=== PATIENT | female | born 1940 | race Caucasian/White ===

== ENCOUNTER 2017-08-29 13:57 | Emergency (ER) | payer BC, OTHER ==
--- NOTE | 2017-08-29 15:14 | UC ---
Respiratory Complaint HPI - HPI Summary HPI Summary: 77 y/o female presents to the urgent care c/o productive cough,SOB for the past week. Pt reports symptoms started with nasal congestion and common cold. cough was improving, but yesterday she had chills and felt hot. she feels SOB when she coughs. she has been taking Robitussin PO , but she thinks it is elevating her BP. Pt denies chest pain, dizziness, ARANDA, ear pain, abdominal pain, N/V/D - History of Current Complaint Chief Complaint: UCGeneralIllness Stated Complaint: URI Time Seen by Provider: 08/29/17 14:30 Hx Obtained From: Patient Hx Last Menstrual Period: menopausal ?: No Onset/Duration: Gradual Onset, Lasting Weeks - 1 week, Still Present Timing: Intermittent Episodes Severity Initially: Mild Severity Currently: Moderate Pain Intensity: 7 Pain Scale Used: 0-10 Numeric Character: Cough: Productive, Sputum Description: - green Aggravating Factors: Deep Breaths, Recumbent Position Alleviating Factors: OTC Meds Associated Signs And Symptoms: Positive: Fever, Chills, URI - Risk Factors Pulmonary Embolism Risk Factors: Negative Cardiac Risk Factors: Hypertension, Elevated Lipids Pseudomonas Risk Factors: Negative Tuberculosis Risk Factors: Negative - Allergies/Home Medications Allergies/Adverse Reactions: Allergies Allergy/AdvReac Type Severity Reaction Status Date / Time No Known Allergies Allergy Verified 08/29/17 14:16 Home Medications: Home Medications Potassium Chloride Microencaps [Klor-Con M20] 20 meq PO DAILY 08/29/17 [History Confirmed 08/29/17] Valsartan/HCTZ 320/25(NF) [Diovan Hct 320/25(NF)] 1 tab PO DAILY 08/29/17 [ History Confirmed 08/29/17] amLODIPine TAB* [Norvasc 5 mg TAB*] 2.5 mg PO DAILY 08/29/17 [History Confirmed 08/29/17] PMH/Surg Hx/FS Hx/Imm Hx Previously Healthy: Yes Endocrine History: Dyslipidemia - diet control Cardiovascular History: Hypertension - Surgical History Surgical History: Yes Surgery Procedure, Year, and Place: D&C. gallbladder 2006 - Family History Known Family History: Positive: Cardiac Disease Family History: Colon cancer - Social History Occupation: Retired Lives: With Family Alcohol Use: None Substance Use Type: None Smoking Status (MU): Never Smoked Tobacco - Immunization History Vaccination Up to Date: Yes Review of Systems Constitutional: Fever - subjective, Chills Skin: Negative Eyes: Negative ENT: Nasal Discharge - yellowish nasal discharge Respiratory: Shortness Of Breath, Cough - productive with yellowish phlegm Cardiovascular: Negative Gastrointestinal: Negative Genitourinary: Negative Motor: Negative Neurovascular: Negative Musculoskeletal: Negative Neurological: Negative Psychological: Negative Is Patient Immunocompromised?: No All Other Systems Reviewed And Are Negative: Yes Physical Exam Triage Information Reviewed: Yes Vital Signs: Initial Vital Signs Temp 97.8 F 08/29/17 14:11 Pulse 68 08/29/17 14:11 Resp 18 08/29/17 14:11 BP 185/54 08/29/17 14:11 Pulse Ox 97 08/29/17 14:11 - Additional Comments Vital Signs Reviewed: Yes General: well developed, well nourished male sitting in the examining table w/o any apparent distress Eyes: Positive: Conjunctiva Clear - PERRLA, EOMI, fundi grossly normal ENT: Positive: Normal ENT inspection, Hearing grossly normal, Pharynx normal, Nasal congestion - edematous and erythematous nasal mucosa, Nasal drainage - yellowish drainage, TMs normal. Negative: Tonsillar swelling, Tonsillar exudate Neck: Positive: Supple, Nontender, No Lymphadenopathy Respiratory: no orthopnea or dyspnea. Able to speak in full sentences, no retractions or accessory muscle use, no tripod position, stridor, or head bobbing. scattered posterior upper lungs with rhonchi, no wheeaing or rales. Cardiovascular: Positive: RRR, No Murmur, Pulses Normal, Brisk Capillary Refill Abdomen Description: Positive: Nontender, No Organomegaly, Soft. Negative: CVA Tenderness (R), CVA Tenderness (L) Bowel Sounds: Positive: Present Musculoskeletal Exam: Normal Musculoskeletal: Positive: Strength Intact, ROM Intact, No Edema Neurological Exam: Normal Psychological Exam: Normal Skin Exam: Normal UC Diagnostic Evaluation - Laboratory O2 Sat by Pulse Oximetry: 97 Respiratory Course/Dx - Course Course Of Treatment: 77 y/o female presents to the urgent care c/o productive cough,SOB for the past week. Pt reports symptoms started with nasal congestion and common cold. cough was improving, but yesterday she had chills and felt hot. she feels SOB when she coughs. she has been taking Robitussin PO , but she thinks it is elevating her BP. Pt denies chest pain, dizziness, ARANDA, ear pain, abdominal pain, N/V/D. Hx obtained. Pt with scattered rhonchi on posterior upper lungs on examination.Chest X-ray ordered: Impression: no acute cardiopulmonary disease. However a positive 1.7 pulmonary nodule on the mid left lung. Dr Amador consulted on Pt's findings. He suggested to advised Pt to f/u with her PCP in 2-3 days for further managment. Pt with Acute bronchitis on examination. Pt Rx Z-ren PO and Albuterol inhaler and Tessalon tabs O to alleviate bronchospasm. Pt was educated on the pulmonary nodule. She states she hasn't done any images of her chest in the past 5 years and she has not lost any weight in the past 3 months. all questions answered at Pt 's satisfaction. Pt's BP is elevated today, advised to decrease salt in diet, monitor BP .Strongly advised to f/u as soon as possible with her PCP Dr Hill for referal for chest CT and further management on the pulmonary nodule.Pt also advised if not improvement or worsening of symptoms to go immediately to the ER for further management. pt understood and agreed with plan of care. Pt left the clinic hemodynamically stable. - Differential Dx/Diagnosis Differential Diagnosis/HQI/PQRI: Asthma, Bronchitis, Influenza, Laryngitis, Lower Resp Infection, Sinusitis, Other - URI, pharyngitis Provider Diagnoses: 1- Acute bronchitis. 2-Pulmonary nodule in the LF lung. 3 - Uncontrolled HTN - Physician Notification/Consults Discussed Patient Care With: Manolo Amador - Dr Amador agreed wotj Pt's plan of care Discharge - Discharge Plan Condition: Stable Disposition: HOME Prescriptions: Albuterol HFA INHALER* [Ventolin HFA Inhaler*] 1 - 2 puff INH Q6H PRN #1 mdi PRN Reason: Cough Azithromyxin RNE (NF) [Z-Ren (Zithromax) 250 mg tabs #6] 2 tab PO .TODAY, THEN 1 DAILY #6 tab Benzonatate CAP* [Tessalon 100 MG CAP*] 100 mg PO TID PRN #15 cap PRN Reason: Cough Patient Education Materials: Acute Bronchitis (ED), Pulmonary Nodules (ED) Referrals: Marilou Hill MD [Primary Care Provider] - 3 Days (Incidental finding of Mid-lecel left lung 1.7cm pulmonary nodule on chest X- ray. Please f/u with CT ans evaluate. Thank you) Additional Instructions: 1-Please take full course of antibiotic to avoid resistance. 2-Take Tessalon PO tabs as directed and use the albuterol inhaler to alleviate cough. Increase fluid intake, rest and eat well. 3- If symptoms do not improve or worsen or your develop SOB with fever and severe wheezing please go immediately to the ER further evaluation and treatment. 4- F/u with your PCP in 2-3 days for further management on Pulmonary Nodule for further images and treatment 5- Your BP is elevated today, please stop taking the Robitussin Po and decrease salt in your diet, monitor BP and if it continues to be elevated f/u with PCP for further management
--- NOTE | 2017-08-29 16:27 | RAD ---
INDICATION: Cough COMPARISON: Chest x-ray dated August 30, 2006 TECHNIQUE: PA and lateral views of the chest were obtained. FINDINGS: The heart and mediastinum are normal in size and contour. Overlying the mid-level left lung is a 1.7 cm nodule that was not seen on the CT the chest acquired December 04, 2004. Otherwise the lungs are grossly clear. There is no evidence of large pleural effusion. Visualized bones are normal for the patient's age. There is no radiographic evidence of free air beneath the diaphragm IMPRESSION: INTERVAL APPEARANCE OF A 1.7 CM LEFT LUNG PULMONARY NODULE IN THIS OTHERWISE NONACUTE CHEST X-RAY. RECOMMEND FURTHER CHARACTERIZATION WITH CONTRAST-ENHANCED CT.
[2017-08-29 16:50] VITALS: BP 154/82
== END 2017-08-29 16:55 | disposition home or self-care (01) ==
LOC: UCEAST 13:57
DX: J20.9 Acute bronchitis, unspecified (principal); R91.1 Solitary pulmonary nodule; I10 Essential (primary) hypertension; E78.5 Hyperlipidemia, unspecified
CPT/HCPCS: 71020; 99202; G0463

== ENCOUNTER 2017-11-17 12:32 | Day surgery (SDC) | payer MEDICARE ==
[~2017-11-17 12:32] MED LIST: Buffered Lidocaine 0.9% SYRIN* 5 ML/SYR SYRINGE INTRADERM ONE; Famotidine IV* 10 MG/ML 2 ML (20 mg) IV ONE; Metoclopramide TAB* 10 MG PO ONE
[2017-11-17] MEDS ORDERED: Metoclopramide TAB* 10 MG ONE (12:50)
[2017-11-17] MEDS ORDERED: Famotidine IV* 10 MG/ML 2 ML (20 mg) ONE (12:50)
[2017-11-17] MEDS ORDERED: Buffered Lidocaine 0.9% SYRIN* 5 ML/SYR SYRINGE ONE (12:51)
[2017-11-17] MEDS ORDERED: fentaNYL* 50 MCG/ML 2 ML VIAL (100 MCG VIAL) ONE (13:38)
[2017-11-17] MEDS ORDERED: Dexamethasone IV* 4 MG/ML 1 ML (4 MG) ONE (13:38)
[2017-11-17] MEDS ORDERED: Ondansetron INJ* 2 MG/ML VIAL ONE (13:38)
[2017-11-17] MEDS ORDERED: Lidocaine 2% PF * 5 ML VIAL ONE (13:38)
[2017-11-17] MEDS ORDERED: Propofol* 10 MG/ML 20 ML BTL IV PUSH ONE (13:38)
[2017-11-17] MEDS ORDERED: Cisatracurium* 2 MG/ML MDV 5 ML ONE (13:39)
[2017-11-17] MEDS ORDERED: Midazolam* 1 MG/ML 10 ML VIAL (10 MG) ONE (13:39)
[2017-11-17] MEDS ORDERED: fentaNYL* 50 MCG/ML 2 ML VIAL (100 MCG VIAL) IV PRN (15:51)
[2017-11-17] MEDS ORDERED: Ondansetron INJ* 2 MG/ML VIAL IV PRN (15:51)
[2017-11-17] MEDS ORDERED: Levalbuterol 0.63MG/3ML NEB* UNIT OF USE INH PRN (15:51)
[2017-11-17] MEDS ORDERED: Naloxone* 0.4 MG/ML 1 ML VIAL IV PRN (15:51)
[2017-11-17] MEDS ORDERED: Levalbuterol 0.63MG/3ML NEB* UNIT OF USE INH ONE (16:02)
[2017-11-17 16:51] VITALS: BP 133/61
--- NOTE | 2017-11-18 15:11 | PRO ---
BRONCHOSCOPY REPORT: DATE OF PROCEDURE: 11/17/17 SURGEON: Jackie Brandon MD ANESTHESIOLOGIST: Dr. Chaney. ANESTHESIA: General anesthesia. PROCEDURE PERFORMED: Bronchoscopy with endobronchial ultrasound-guided fine needle aspiration from R4, station 7, L4, L10 lymph nodes. 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 DESCRIPTION OF PROCEDURE: Informed consent was obtained from the patient prior to the procedure after all the risks and benefits were thoroughly explained. The patient recently had CT-guided biopsy and was diagnosed with atypical carcinoid. PET scan did not reveal increased uptake in lymph nodes. EBUS was scheduled for lymph node staging. Appropriate time-out was agreed on by attending staff prior to the procedure. Flexible Olympus bronchoscope was inserted through the ET tube for airway inspection. ET tube positioning was confirmed to be about 3-4 cm above the level of igor. Bronchoscope was then advanced into right bronchial tube, which was inspected. Thin white secretions were noted and were suctioned out. No endobronchial lesions were noted. Bronchoscope was then advanced into the left bronchial tree, which was inspected. No endobronchial lesions were noted. Thin secretions were noted and were suctioned out. Lower lobe bronchus mucosa was friable and is bleeding to minimal suction. Bronchoscope was then withdrawn and EBUS bronchoscope was inserted through ET tube. R4 lymph node was not prominent, measured 4 mm on ultrasound. R4 lymph node was accessed with 4 passes. Rapid on-site evaluation did not reveal lymphatic tissue. Station 7 was also enlarged and measured about 5 mm, which was sampled with 2 passes. Rapid on-site evaluation revealed lymphatic tissue, no atypical cells were noted, normal lymphatic tissue was noted. Station L4 was then sampled with 2 passes. L4 lymph node was also minimally enlarged, measured about 5 mm. Rapid on-site evaluation revealed normal lymphatic tissue with no atypical cells. Left hilar nodes were sampled with 2 passes. They were also minimally enlarged. Rapid on-site evaluation revealed normal lymphatic tissue. Olympus bronchoscope could not be inserted any further and no other lymph nodes were significantly enlarged and were not sampled. Bronchoscope was then withdrawn. The patient tolerated the procedure well. The patient was extubated and seen in Recovery in optimal condition. [id number]/[facility] #: [id number] MTDD
== END 2017-11-17 17:24 | disposition home or self-care (01) ==
LOC: OR 12:32
PROVIDERS: ATTEND Internal Medicine
DX: C7A.090 Malignant carcinoid tumor of the bronchus and lung (principal); I10 Essential (primary) hypertension; G47.33 Obstructive sleep apnea (adult) (pediatric); M85.80 Other specified disorders of bone density and structure, unspecified site
CPT/HCPCS: 88172; 88173; 88177; 88305; A9270-GY; J1100; J2250; J2405; J2704; J3010; J7614